=== PATIENT | female | born 1955 | race Caucasian/White ===

== ENCOUNTER 2019-06-03 13:28 | Inpatient (IN) | payer MEDICARE ==
[~2019-06-03] VITALS: Ht 165.1 cm; Wt 118.2 kg
[2019-06-03 13:29] VITALS: BP 155/65
[2019-06-03] MEDS ORDERED: SYNTHROID175 MCG PO (14:06)
[2019-06-03] MEDS ORDERED: HYDROCHLOROTHIA50 MG PO (14:06)
[2019-06-03] MEDS ORDERED: IBUPROFEN800 MG PO (14:07)
[2019-06-03] MEDS ORDERED: ZITHROMAX250 MG PO (14:09)
[2019-06-03] MEDS ORDERED: PREDNISONE20 MG PO (14:09)
[2019-06-03] MEDS ORDERED: ALBUTEROL SULF8.5 GM INH (14:10)
[2019-06-03] MEDS ORDERED: LIPITOR10 MG PO (14:12)
[2019-06-03 15:48] LABS: BASOPHILS 0.1 % (0-2); EOSINOPHILS 0 % (0-7); HEMOGLOBIN 13.2 g/dL (12-16); IMMATURE GRANULOCYTES 0.5 % (0-5); LYMPHOCYTES 12.9 % (15-50); MCH 29.9 pg (26.0-34.0); MCHC 33.8 g/dL (31.0-37.0); MCV 88.2 fL (80.0-100.0); MEAN PLATELET VOLUME 9.9 fL (7.4-10.4); MONOCYTES 8.4 % (2-11); NEUTROPHILS 78.1 % (40-80); PLATELET COUNT 277 10x3/uL (130-400); RBC 4.42 10x6/uL (4.00-5.40); RDW 13.3 % (11.5-14.5); WBC 10.7 10x3/uL (4.8-10.8)
[2019-06-03 16:11] LABS: ALBUMIN 3.5 g/dL (3.4-5.0); BILIRUBIN - TOTAL 0.35 mg/dL (0.2-1.3); CALCIUM 8.4 mg/dL (8.5-10.1); CARBON DIOXIDE 31.7 mmol/L (21.0-32.0); CREATININE - SERUM 0.9 mg/dL (0.6-1.3); PROTEIN - SERUM 6.5 g/dL (6.4-8.2)
[2019-06-03 16:18] LABS: POTASSIUM - SERUM 2.7 mmol/L (3.5-5.1)
[2019-06-03 16:47] VITALS: BP 155/65; Ht 165.1 cm; Wt 118.2 kg
--- NOTE | 2019-06-03 17:23 | NUR ---
ASSESSMENT COMPLETE PT [id number] RESP UNLABORED SKIN W/D COLOR W/L NONPRODUCTIVE COUGH NOTED DENIES ANY PAIN DISCOMFORT AT THIS TIME WILL CONTINUE TO M,ONITOR
--- NOTE | 2019-06-03 18:42 | NUR ---
DENIES ANY NEEDS. IV INFUSING INTO THE LEFT ARM. NO NEEDS VOICED
[2019-06-03 20:00] VITALS: BP 135/69
[2019-06-04 04:00] VITALS: BP 123/76
[2019-06-04 04:40] LABS: BASOPHILS 0 % (0-2); EOSINOPHILS 0 % (0-7); HEMATOCRIT 37.5 % (36.0-48.0); HEMOGLOBIN 12.2 g/dL (12-16); IMMATURE GRANULOCYTES 0.5 % (0-5); MCHC 32.5 g/dL (31.0-37.0); MCV 89.3 fL (80.0-100.0); MEAN PLATELET VOLUME 9.8 fL (7.4-10.4); MONOCYTES 10.1 % (2-11); NEUTROPHILS 64.4 % (40-80); PLATELET COUNT 249 10x3/uL (130-400); RDW 13.6 % (11.5-14.5)
[2019-06-04 05:07] LABS: CALCIUM 7.8 mg/dL (8.5-10.1); CARBON DIOXIDE 32.8 mmol/L (21.0-32.0); CREATININE - SERUM 0.9 mg/dL (0.6-1.3); MAGNESIUM - SERUM 2.1 mg/dL (1.8-2.4); PHOSPHOROUS 4.2 mg/dL (2.5-4.9)
[2019-06-04 05:13] LABS: POTASSIUM - SERUM 2.8 mmol/L (3.5-5.1)
[2019-06-04 08:54] VITALS: BP 128/65
[2019-06-04 12:00] VITALS: BP 135/64
--- NOTE | 2019-06-04 13:14 | NUR ---
URINE SPECIMEN AND FLU SWAB COLLECTED AND TAKEN TO LAB. WILL MONITOR.
[2019-06-04 13:31] LABS: APPEARANCE CLOUDY (CLEAR); BILIRUBIN NEGATIVE (NEGATIVE); COLOR YELLOW (YELLOW); GLUCOSE NEGATIVE (NEGATIVE); KETONE NEGATIVE (NEGATIVE); NITRITE NEGATIVE (NEGATIVE); PROTEIN NEGATIVE (NEGATIVE); UROBILINOGEN NORMAL (NORMAL)
[2019-06-04 13:40] LABS: BACTERIA FEW /hpf (NEGATIVE); EPITHELIAL CELLS 25-50 /hpf (0-5); MUCUS <1+ /lpf (NONE SEEN); RED CELLS - URINE NONE SEEN /hpf (0-5); WHITE CELLS - URINE 0-5 /hpf (NEGATIVE)
[2019-06-04 16:00] VITALS: BP 132/71
--- NOTE | 2019-06-04 20:00 | NUR ---
REPORT AND INITIAL ROUNDS COMPLETED. PT RESTING WITH NO DISTRESS. IVF INFUSING TO LEFT WRIST/HAND. RESPS NONLABORED. CPOC.
[2019-06-04 21:03] VITALS: BP 130/78
[2019-06-05 01:07] VITALS: BP 116/68
[2019-06-05 07:10] LABS: BASOPHILS 0.5 % (0-2); EOSINOPHILS 0.3 % (0-7); HEMATOCRIT 37.4 % (36.0-48.0); HEMOGLOBIN 11.9 g/dL (12-16); IMMATURE GRANULOCYTES 0.8 % (0-5); LYMPHOCYTES 36.9 % (15-50); MCHC 31.8 g/dL (31.0-37.0); MEAN PLATELET VOLUME 9.9 fL (7.4-10.4); MONOCYTES 9.8 % (2-11); NEUTROPHILS 51.7 % (40-80); PLATELET COUNT 202 10x3/uL (130-400); RBC 4.11 10x6/uL (4.00-5.40); RDW 13.7 % (11.5-14.5)
[2019-06-05 07:13] LABS: WBC 3.8 10x3/uL (4.8-10.8)
[2019-06-05 07:20] LABS: CALC OSMOLALITY 286 mosm/kg (275-300); CALCIUM 7.6 mg/dL (8.5-10.1); CARBON DIOXIDE 30.1 mmol/L (21.0-32.0); CHLORIDE - SERUM 105 mmol/L (98-107); CREATININE - SERUM 0.7 mg/dL (0.6-1.3); GLUCOSE 122 mg/dL (74-106); POTASSIUM - SERUM 3.3 mmol/L (3.5-5.1); SODIUM 143 mmol/L (136-145); UREA NITROGEN 15 mg/dL (7-18); eGFR NON AFRICAN AMERICAN 90 mL/min (90-120)
[2019-06-05 10:48] VITALS: BP 128/69
[2019-06-05] MEDS ORDERED: TAMIFLU75 MG PO (12:01)
[2019-06-05 14:25] VITALS: BP 143/70
--- NOTE | 2019-06-05 15:39 | NUR ---
IV AND TWLWMWTRY DCD. DC PLANS GIVEN. UNDERSTANDING VOICED. ESCORTED TO ER WAITING ROOM TO MEET TAXI.
== END 2019-06-05 15:40 | disposition home or self-care (01) | DRG 203 ==
LOC: D.SDCHOLD 13:28 → D.M2 13:46
PROVIDERS: Internal Medicine Nephrology; ADMIT Family Medicine; ATTEND Family Medicine
DX: J20.9 Acute bronchitis, unspecified (principal); J10.1 Influenza due to other identified influenza virus with other respiratory manifestations; E03.9 Hypothyroidism, unspecified; E87.6 Hypokalemia; K21.9 Gastro-esophageal reflux disease without esophagitis; E78.5 Hyperlipidemia, unspecified; M19.90 Unspecified osteoarthritis, unspecified site; G47.00 Insomnia, unspecified; F41.8 Other specified anxiety disorders